=== PATIENT | male | born 2005 | race Caucasian/White ===

== ENCOUNTER 2025-03-06 01:35 | Emergency (ER) | payer MEDICAID ==
[~2025-03-06] VITALS: Ht 172.7 cm; Wt 52.4 kg
[2025-03-06 01:39] VITALS: BP 139/89; PULSE 100; RESP 16; O2SAT 98
[2025-03-06 02:00] LABS: LEUKOCYTE ESTERASE ,URINE TRACE (Neg); NITRITES, URINE NEGATIVE (Neg); OCCULT BLOOD,URINE MODERATE (Neg)
[2025-03-06 02:07] LABS: UA COLLECTION TYPE CLN CATCH MIDSTREAM
[2025-03-06 02:09] LABS: SQUAMOUS EPITHELIAL CELL,UR NONE SEEN /LPF (FEW)
--- NOTE | 2025-03-06 09:46 | Physician Documentation ---
History of Present Illness ~ Chief Complaint: Blood in Urine Stated Complaint: BLOOD IN URINE Time Seen by MD: 09:04 HPI This is a 19-year-old male who presents with two weeks of dysuria and feeling of bladder fullness without abdominal pain, testicular pain, flank pain, or fever. Patient reports today he experienced blood in his urine prompting him to come to the emergency department. Patient reports no other acute symptoms or concerns. Medication Reconciliation Allergies: Coded Allergies: No Known Allergies (Unverified , 03/06/25) Scheduled Cefpodoxime Proxetil (Vantin), 1 TAB PO Q12H Past Medical History Past Medical History: No Pertinent History Smoking Status: Current every day smoker Review of Systems ROS As stated above in the HPI, otherwise all systems are reviewed and negative. Physical Exam Vital Signs: Temperature: 99.6, Source: Oral, Heart Rate: 100, Respiratory Rate: 16, BP: 139/89, Pulse Oximetry: 98, Weight: 52.400 Oxygen Flow Rate: 0 Physical Exam VITALS: Reviewed and as above. GENERAL: Alert, nontoxic appearing, no apparent distress. RESPIRATORY: No increased work of breathing, no respiratory distress, speaking in full clear sentences BACK: No CVA tenderness GI: Soft, nontender, no rebound, no guarding Progress Results/Orders Results/Orders Vital Signs 03/06/25 03/06/25 01:39 09:58 Temp 99.6 99.6 Pulse 100 Resp 16 B/P (MAP) 139/89 Pulse Ox 98 O2 Flow Rate 0 Laboratory Tests Test 03/06/25 01:45 Urine Specimen Description Cln catch midstream Urine Color Yellow Urine Clarity Clear Urine pH 6.0 Urine Specific [place] 1.025 Urine Protein 100 H Urine Glucose (UA) Negative Urine Ketones Negative Urine Occult Blood Moderate H Urine Nitrite Negative Urine Bilirubin Negative Urine Urobilinogen 0.2 Urine Leukocyte Esterase Trace H Urine RBC 20-50 Urine WBC 20-30 H Urine Squamous Epithelial Cells None seen Urine Bacteria 1+ Urine Culture Indicated Indicated Volume Urine Centrifuged 10 ml Urine Comment Microbiology Date/Time Source Procedure Growth Status 03/06/25 02:09 Urine Clean Catch Midstream Urine Culture - Preliminary Culture received. Resulted Medical Decision Making Additional information obtaine: N/A Findings This 19-year-old male presented with two weeks of dysuria with an episode of hematuria two today, given UA findings I do suspect urinary tract infection over urethritis however patient will additionally follow up outpatient for full STI panel testing with him and his monogamous partner. Patient is otherwise well- appearing and appropriate for outpatient follow up, vital signs stable no evidence of sepsis. Patient provided follow up instructions, return to care precautions, and home care instructions which he verbalized understanding of. Urinary Diff Dx:Considerations: Include: Prostatitis, Pyelonephritis, Renal failure, Renal infarction, Strain, Urolithiasis, Urethritis, UTI Genital Diff Dx:Considerations: Include: Balanitis, Balanoposthitis, Inguinal hernia, Syphilis, Testicular torsion, Torsion-epididymis, Torsion-appendiceal, Urinary retention, Urethritis, Urethritis-chlamydial, Urethritis-gonococcal Departure Time of Disposition: 09:48 Disposition: HOME / SELF CARE / HOMELESS Impression: Primary Impression: Urinary tract infection Qualified Codes: N30.01 - Acute cystitis with hematuria Condition: Improved Discharge Instructions: Urinary Tract Infection, Adult, Hematuria, Adult Additional Instructions: As we discussed this is likely urinary tract infection though I recommend you fo llow up for full STI panel testing with you and your partner. Please take the antibiotics as prescribed. Please follow up with your primary care provider in the next few days. Please return to the emergency department for any new or worsening concerning symptoms including but not limited to worsening pain or if you develop a fever. Referrals: NO PRIMARY CARE PROVIDER (PCP) Prescriptions Cefpodoxime Proxetil (Vantin) 200 Mg Tablet 1 TAB PO Q12H for 7 Days, #14 TAB Prov: ASHLEY CARRINGTON 03/06/25 Education Educated: Patient Educated regarding: diagnosis, treatment, prognosis, need for follow up Signature Scribe Signature: No scribe Attestation: The note accurately reflects work and decisions made by me.KERRY Padgett 03/06/25 20:22 ASHLEY CARRINGTON Mar 06, 2025 09:46
[2025-03-06] MEDS ORDERED: CEFP200T13 PO (09:50)
[2025-03-06 09:58] VITALS: TEMP 99.6
== END 2025-03-06 10:00 | disposition home or self-care (01) ==
LOC: ER 01:37
DX: N39.0 Urinary tract infection, site not specified (principal); F17.200 Nicotine dependence, unspecified, uncomplicated
CPT/HCPCS: 81001; 87088; 99283